=== PATIENT | female | born 1940 | race American Indian/Alaskan Native ===

== ENCOUNTER 2016-03-25 11:10 | Outpatient (CLI) | payer MEDICARE ==
--- NOTE | 2016-03-25 12:08 | Mammography Report ---
BILATERAL DIGITAL SCREENING MAMMOGRAM WITH CAD: 03/25/16 11:10:00 CLINICAL: Routine screening.Breast cancer survivor status post left partial mastectomy and radiation therapy. Increased pain in the left breast. COMPARISON:02/28/15 FINDINGS: The right breast is heterogeneously dense with a stable fibroglandular pattern. No mass, architectural distortion or suspicious calcifications. The left breast is smaller than the right with stable upper outer postsurgical scar, surgical clips and benign fat necrosis. Scattered benign calcifications of the left breast. No mass or suspicious calcifications of the left breast. Stable mild skin thickening of the left breast. IMPRESSION: No mammographic evidence of malignancy. No new explanation for left breast pain. BI-RADS CATEGORY: 2 -- Benign RECOMMENDATION: Routine mammographic screening in one year. COMMENT: Patient follow-up letters are generated via our [employer] application.
== END 2016-03-25 11:11 | disposition home or self-care (01) ==
LOC: SPVWC 11:10
PROVIDERS: ATTEND Internal Medicine Hematology & Oncology
DX: N64.4 Mastodynia (principal); Z85.3 Personal history of malignant neoplasm of breast; Z90.12 Acquired absence of left breast and nipple
CPT/HCPCS: 77066; G0204

== ENCOUNTER 2017-04-03 12:53 | Outpatient (CLI) | payer MEDICARE ==
--- NOTE | 2017-04-03 16:24 | Mammography Report ---
BILATERAL DIGITAL SCREENING MAMMOGRAM WITH CAD: 04/03/17 12:53:00 CLINICAL: Routine screening.Breast cancer survivor status post left partial mastectomy and radiation therapy. COMPARISON:03/25/16 FINDINGS: The right breast is heterogeneously dense in the left breast is relatively fatty. Left upper outer postsurgical scar. A 2.6 cm oil cyst is identified at the area of fat necrosis and scar. The wall is more calcified than on the prior exam. Surgical clips in the left upper outer breast and axilla. No mass, suspicious architectural distortion or suspicious calcifications. The right breast is negative. IMPRESSION: No mammographic evidence of malignancy. BI-RADS CATEGORY: 2 -- Benign RECOMMENDATION: Routine mammographic screening in one year. COMMENT: Patient follow-up letters are generated via our [employer] application.
== END 2017-04-03 12:54 | disposition home or self-care (01) ==
LOC: SPVWC 12:53
PROVIDERS: ATTEND Internal Medicine
DX: Z12.31 Encounter for screening mammogram for malignant neoplasm of breast (principal); Z90.12 Acquired absence of left breast and nipple
CPT/HCPCS: 77067

== ENCOUNTER 2018-04-14 12:36 | Outpatient (CLI) | payer MEDICARE ==
--- NOTE | 2018-04-14 14:04 | Mammography Report ---
Screening mammogram: Left breast cancer survivor post partial mastectomy and radiation therapy. Routine views are compared to her prior examinations dating back to March 2016. Images of the right breast demonstrates a heterogeneous pattern with 2 small stable circumscribed nodular densities in the superior breast. There are surgical changes with traction in the upper outer left breast. There are associated surgical clips and degenerative calcifications. There is mild anterior skin thickening. These findings are all unchanged from prior exams. CAD used. Impression: Stable exam. Recommendation: Annual mammogram followup. BI-RADS CATEGORY: 2 = Benign ACR BI-RADS MAMMOGRAPHIC CODES: 0 = Needs additional imaging evaluation; 1 = Negative; 2 = Benign; 3 = Probably benign; 4 = Suspicious; 5 = Malignant; 6 = Known biopsy-proven malignancy COMMENT: 1. Dense breast tissue, i.e., adenosis, fibrocystic changes, etc., may obscure an underlying neoplasm. 2. Approximately 10% of cancers are not detected with mammography. 3. A negative mammography report should not delay biopsy if a clinically suspicious mass is present.
== END 2018-04-14 12:37 | disposition home or self-care (01) ==
LOC: SPVWC 12:36
PROVIDERS: ATTEND Internal Medicine
DX: Z12.31 Encounter for screening mammogram for malignant neoplasm of breast (principal)
CPT/HCPCS: 77067